=== PATIENT | female | born 1980 | race Caucasian/White ===

== ENCOUNTER 2017-09-14 19:34 | Emergency (ER) | payer OTHER ==
[~2017-09-14] VITALS: Ht 175.3 cm; Wt 75.0 kg
[2017-09-14 20:18] VITALS: BP 128/73; PULSE 80; RESP 20; TEMP 98.9; O2SAT 100
--- NOTE | 2017-09-14 20:59 | PD ---
HPI Chief Complaint: Injury Time Seen by Provider: 20:42 Travel History International Travel<30 days: No Contact w/Intl Traveler<30days: No Traveled to known affect area: No History of Present Illness HPI 37-year-old female presents emergency department for evaluation left knee pain 1 week. 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 She believes she may have twisted it or pulled it. She states over the last couple of days she has been ambulatory but has noticed it began to swell more. She states at times it feels like it is going to "give out." She denies any other injury. She denies any alterations in sensation. She states pain is exacerbated with flexion of the left knee. She has no other symptoms to report. [facility] Past Medical History Medical History: Denies Significant Hx Medical other: Yes (tb as a child) Immunizations Current: Yes Tetanus Vaccination: Unknown Influenza Vaccination: No ?: Not LMP: 08-14-17 Tubal Ligation: Yes Social History Alcohol Use: Yes Tobacco Use: No Substance Use: No Allergies-Medications (Allergen,Severity, Reaction): Coded Allergies: Penicillins (Verified Allergy, Severe, Anaphylaxis, 09/14/17) Reported Meds & Prescriptions Reported Meds & Active Scripts Active Ibuprofen 800 Mg Tab 800 Mg PO Q8H PRN Review of Systems Except as stated in HPI: all other systems reviewed are Neg Physical Exam Narrative GENERAL: Well-nourished, well-developed female patient, ambulatory with an antalgic gait no acute distress SKIN: Focused skin assessment warm/dry. HEAD: Normocephalic. EYES: No scleral icterus. No injection or drainage. NECK: Supple, trachea midline. No JVD or lymphadenopathy. CARDIOVASCULAR: Regular rate and rhythm without murmurs, gallops, or rubs. RESPIRATORY: Breath sounds equal bilaterally. No accessory muscle use. MUSCULOSKELETAL: No cyanosis. Palpable effusion on the distal aspect of the left anterior knee. Patient can flex and extend. There is no laxity with valgus or varus stress. Distal pulses are palpable. Cap refills within normal limits. BACK: Nontender without obvious deformity. No CVA tenderness. Data Data Last Documented VS Vital Signs Date Time Temp Pulse Resp B/P (MAP) Pulse Ox O2 Delivery O2 Flow Rate FiO2 09/14/17 22:10 09/14/17 20:18 98.9 80 20 100 Room Air Orders Orders Knee, Complete (4vws) (09/14/17 ) Arturo Bandage (09/14/17 21:22) Crutches (09/14/17 21:22) Ed Discharge Order (09/14/17 21:22) MDM Medical Decision Making Medical Screen Exam Complete: Yes Emergency Medical Condition: Yes Medical Record Reviewed: Yes Differential Diagnosis Sprain versus contusion versus dislocation Narrative Course 37-year-old female presents emergency department for evaluation left knee pain. Patient appears without distress. X-ray imaging shows a small joint effusion , otherwise negative exam. I have discussed care with the patient. Arturo wrap is applied and she is provided crutches. I have encouraged outpatient MRI if symptoms persist. She agrees to return immediately with acute worsening symptoms. Diagnosis Primary Impression: Left knee sprain Qualified Codes: S83.92XA - Sprain of unspecified site of left knee, initial encounter Referrals: Primary Care Physician Patient Instructions: General Instructions, Knee Exercises (GEN), Knee Sprain ( DC) Additional Instructions: Arturo wrap for compression Ice and elevate to reduce pain and swelling Follow-up with a primary care provider MRI may be needed if symptoms persist Return immediately with acute worsening symptoms Med/Other Pt SpecificInfo: Prescription(s) given Scripts Ibuprofen (Ibuprofen) 800 Mg Tab 800 MG PO Q8H Y for Pain/Inflammation, #30 TAB 0 Refills Prov: Meg Arboleda 09/14/17 Disposition: 01 DISCHARGE HOME Condition: Stable Meg Arboleda September 14, 2017 20:59
--- NOTE | 2017-09-14 21:18 | RADRPT ---
EXAM DATE: 09/14/2017 9:12 PM EDT AGE/SEX: 37 years / Female INDICATIONS: Knee pain. CLINICAL DATA: This is the patient's initial encounter. Patient reports that signs and symptoms have been present for 1 day and indicates a pain score of 9/10. MEDICAL/SURGICAL HISTORY: None. None. COMPARISON: None. FINDINGS: Bony structures are intact and in normal alignment. Joints are intact without dislocation or signifi cant arthropathy. Osseous density is normal. Small joint effusion. Soft tissues are unremarkable. N o radiopaque foreign bodies seen. CONCLUSION: Small joint effusion. Electronically signed by: Patricio Askew MD 09/14/2017 9:17 PM EDT
[2017-09-14] MEDS ORDERED: IBUP1TAB7 PO (21:24)
== END 2017-09-14 22:16 | disposition home or self-care (01) ==
LOC: NEPD 19:34
DX: S83.92XA Sprain of unspecified site of left knee, initial encounter (principal); X58.XXXA Exposure to other specified factors, initial encounter
CPT/HCPCS: 73564; 99283; E0113